=== PATIENT | male | born 1960 | race Two or more races ===

== ENCOUNTER 2017-11-15 07:31 | Day surgery (SDC) | payer BC ==
[~2017-11-15] VITALS: Ht 165.1 cm; Wt 83.9 kg
[2017-11-15] VITALS (10 sets, daily range): BP systolic 114–131; BP diastolic 78–91
--- NOTE | 2017-11-15 07:05 | Anethesia Preoperative Eval ---
Anesthesia Pre-op PMH/ROS General Date of Evaluation: November 15, 2017 Time of Evaluation: 07:04 Anesthesiologist: margaret ASA Score: ASA 3 Mallampati Score Class I : Soft palate, uvula, fauces, pillars visible Class II: Soft palate, uvula, fauces visible Class III: Soft palate, base of uvula visible Class IV: Only hard plate visible Mallampati Classification: Class II Surgeon: magui Diagnosis: colon screening Surgical Procedure: colonoscopy Social History: smoking - former smoker Family History: no anesthesia problems Allergies: Coded Allergies: No Known Allergies (Unverified , 11/14/17) Medications: see eMAR Past Medical History Cardiovascular: Reports: HTN, arrhythmia Pulmonary: Reports: other - bronchitis Neurologic/Psychiatric: Reports: depression/anxiety Musculoskeletal/Integumentary: Reports: OA Anesthesia Pre-op Phys. Exam Physician Exam Last Vital Signs Date Time Temp Pulse Resp B/P (MAP) Pulse Ox O2 Delivery O2 Flow Rate FiO2 11/15/17 07:55 98.9 92 18 131/87 96 Room Air 98.9 Constitutional: NAD Neurologic: CN 2-12 intact Cardiovascular: RRR Respiratory: CTA Gastrointestinal: S/NT/ND Airway Exam Mallampati Score: Class II MO: full Neck: supple TMD: 2fb ROM: full Anesthesia Pre-op A/P Risk Assessment & Plan Assessment: asa3 Plan: mac Status Change Before Surgery: No Pre-Antibiotics Drug: MANSOOR Givens November 15, 2017 07:05
[~2017-11-15 07:31] MED LIST: Atropine Inj 1mg/10ml Syr IV PRN; DiphenhydrAMINE 50mg/ml Inj IVP PRN; LR 1000ml 1,000 ML IVLG SCH; Midazolam 2mg/2ml Inj IVP PRN; fentaNYL 100 mcg/2 mL IV PRN
[2017-11-15] MEDS ORDERED: LIPITOR20 MG ORAL (07:58)
--- NOTE | 2017-11-15 08:53 | Short Stay Surgery H&P ---
History of Present Illness History of Present Illness Chief Complaint Screening colonoscopy HPI Javier Madrid is a 57 year old male who was admitted on for Colon Screening Patient History Allergies: Coded Allergies: No Known Allergies (Unverified , 11/14/17) Medication History Scheduled Atorvastatin Calcium* (Lipitor*), Unknown Dose ORAL DAILY, (Reported) Review of Systems Cardiovascular: Reports: no symptoms Respiratory: Reports: no symptoms Skeletal: Reports: no symptoms Gastrointestinal: Reports: no symptoms Genitourinary: Reports: no symptoms Neurologic: Reports: no symptoms Endocrine: Reports: no symptoms Hematologic: Reports: no symptoms Physical Exam Vital Signs Last Vital Signs Date Time Temp Pulse Resp B/P (MAP) Pulse Ox O2 Delivery O2 Flow Rate FiO2 11/15/17 07:55 98.9 92 18 131/87 96 Room Air 98.9 Skin: normal HENT: normal Heart: normal Lungs: normal Abdomen: normal Extremities: normal Genitourinary: normal Plan Plan of Care Total colonoscopy Preop Interventions None. Summary of Findings See the reports Attestation Are the patient's medical conditions optimized for surgery? Attestation Response: yes TORRES EDMOND November 15, 2017 08:53
--- NOTE | 2017-11-15 08:54 | Pre-Procedure Note/Attestation ---
Pre-Procedure Note/Attestation Complete Prior to Procedure Planned Procedure: left Procedure Narrative: Endoscopic examination of the colon for screening for colon polyps/CA Indications for Procedure Pre-Operative Diagnosis: R/O colon polyp Attestation I attest that I discussed the nature of the procedure; its benefits; risks and complications; and alternatives (and the risks and benefits of such alternatives ), prior to the procedure, with the patient (or the patient's legal sales representative livestock). I attest that, if there was a reasonable possibility of needing a blood transfusion, the patient (or the patient's legal sales representative livestock) was given the [facility] standardized written summary, pursuant to the [place] Blood Safety Act ([place] Health and Safety Code # 1645, as amended). I attest that I re-evaluated the patient just prior to the surgery and that there has been no change in the patient's H&P, except as documented below: FELI,SAID November 15, 2017 08:54
[2017-11-15] MEDS ORDERED: Propofol 200mg/20ml IV ONE (09:00)
[2017-11-15] MEDS ORDERED: LR 1000ml ONE (09:00)
[2017-11-15] MEDS ORDERED: Lidocaine 1% MPF 10mg/ml 5ml ONE (09:00)
--- NOTE | 2017-11-15 09:47 | Discharge Instructions ---
Discharge Instructions Discharge Instructions Follow up with: See the docotor in office after two weeks. For Congestive Heart Failure Reminder Report to your physician any weight gain of 5 pounds or more in one week. TORRES EDMOND November 15, 2017 09:47
--- NOTE | 2017-11-15 09:47 | Endoscopy Procedure Note ---
Endoscopy Procedure Note General Indication for Procedure: Screening colon Procedures Performed: colonoscopy - Highly redundant and twisted left colon with diverticular lesions. A 3-4 mm hyperplastic polyp at rectosigmoid area biopsied and removed by cold snare Specimen: yes Pt Tolerated Procedure Well: Yes Estimated Blood Loss: none Anesthesia Anesthesiologist: Dr. Bruno Anesthesia: moderate sedation Medications Medication Given: see anesthesia record Inserted Devices Implant(s) used?: No Quality Quality of Bowel Preparation: Fair Did scope reach the cecum?: Yes Was there any complications?: No GI Core Measures 50 yrs or older w/o bx or poly: Yes 10yrs. F/U not recommended: Yes Med reason:<3 yrs.: System Reason:<3 yrs.: Last colonoscopy >= to 3yrs: Yes TORRES EDMOND November 15, 2017 09:47
--- NOTE | 2017-11-15 13:13 | Immediate Post-Op Evaluation ---
Immediate Post-Op Evalulation Immediate Post-Op Evalulation Procedure: colonoscopy Date of Evaluation: November 15, 2017 Time of Evaluation: 10:01 IV Fluids: 800ml lr Blood Products: none Estimated Blood Loss: negligible Blood Pressure Systolic: 117 Blood Pressure Diastolic: 80 Pulse Rate: 79 Respiratory Rate: 18 O2 Sat by Pulse Oximetry: 100 Temperature (Fahrenheit): 98.1 Pain Score (1-10): 0 Nausea: No Vomiting: No Complications none Patient Status: awake, reacts, patent Hydration Status: adequate Drug: MANSOOR Givens November 15, 2017 13:13
--- NOTE | 2017-11-15 13:15 | 48 Hour Post Anesthesia Eval ---
Post Anesthesia Evaluation Procedure: colonoscopy Date of Evaluation: November 15, 2017 Time of Evaluation: 10:03 Blood Pressure Systolic: 117 0: 84 Pulse Rate: 80 Respiratory Rate: 18 Temperature (Fahrenheit): 98.1 O2 Sat by Pulse Oximetry: 100 Airway: patent Nausea: No Vomiting: No Pain Intensity: 0 Hydration Status: adequate Cardiopulmonary Status: stable Mental Status/LOC: patient returned to baseline Post-Anesthesia Complications: none Follow-up care needed: N/A MANSOOR SHI November 15, 2017 13:15
--- NOTE | 2017-11-15 19:00 | Procedure Note ---
DATE OF PROCEDURE: 11/15/2017 SURGEON: Hernán Russell M.D. PROCEDURE: Total colonoscopy with polypectomy. PREOPERATIVE DIAGNOSIS: Screening colonoscopy. POSTOPERATIVE DIAGNOSES: 1. Diverticulosis of the colon. 2. A 3 mm hyperplastic polyp found in the rectosigmoid area, which was biopsied and removed by cold snare, otherwise, normal study up to the base of the cecum as examined. MEDICATION USED: Per Dr. Bruno, anesthesiologist. INSTRUMENT: GIF Olympus videocolonoscope. DESCRIPTION OF PROCEDURE: The patient, after arriving at endoscopy unit, was told about risks and benefits of the procedure, which he accepted and signed informed consent. At this time, he was put in the left lateral decubitus position. After adequate IV sedation, the scope was gently passed through the anal area and a retroflexion maneuver, which was applied did not reveal any evidence of pathology in the whole rectum except that gradually the scope as it was passed through the rectosigmoid area, at the level of 30 cm from the anus, there was evidence of 3 mm hyperplastic type quite benign looking polyp, which was biopsied first and then removed with cold snare totally and sent to pathology lab. The site of polypectomy did not show any bleeding. At this point, significant amount of time was passed through highly redundant left colon, which gradually the scope reached towards the splenic flexure from there into transverse colon. There were areas of diverticular lesions mostly on the left colon, though few of them over the transverse colon as well. However, there was no any evidence of diverticulitis, strictures, major polyps, tumors, inflammatory process, etc. Finally by putting the patient in different positions, the scope reached towards the base of the cecum, which looked normal. The colon cleanup was fair as there was some liquidy stool along the colon, however, within withdrawal of the scope, which took about 6 minutes, there was no other pathology found. The patient tolerated the procedure well and left the endoscopy room in a good condition. Hernán Russell M.D. DR: Aureliano JOB#: [id number] CC:
== END 2017-11-15 11:25 | disposition home or self-care (01) ==
LOC: GAS 07:31
DX: Z12.11 Encounter for screening for malignant neoplasm of colon (principal); K57.30 Diverticulosis of large intestine without perforation or abscess without bleeding; K63.5 Polyp of colon; I10 Essential (primary) hypertension; F32.9 Major depressive disorder, single episode, unspecified; F41.9 Anxiety disorder, unspecified; M19.90 Unspecified osteoarthritis, unspecified site; Z87.891 Personal history of nicotine dependence
CPT/HCPCS: 45380; J2704; J7120; 94003; 94150